=== PATIENT | female | born 1960 | race Two or more races ===

== ENCOUNTER 2022-09-14 07:19 | Outpatient (CLI) | payer OTHER | END 2022-09-14 07:29 | disposition home or self-care (01) | LOC: RX STUDY 07:19 | PROVIDERS: ATTEND Internal Medicine Gastroenterology | DX: K56.600 Partial intestinal obstruction, unspecified as to cause (principal); K56.609 Unspecified intestinal obstruction, unspecified as to partial versus complete obstruction; C18.9 Malignant neoplasm of colon, unspecified; K57.92 Diverticulitis of intestine, part unspecified, without perforation or abscess without bleeding ==